=== PATIENT | female | born 1980 | race Caucasian/White ===

== ENCOUNTER 2018-12-05 18:39 | Emergency (ER) | payer OTHER ==
[~2018-12-05] VITALS: Ht 154.9 cm; Wt 90.7 kg
[~2018-12-05 18:39] MED LIST: ATARAX10 MG PO; CLARINEX2.5 MG/5 M; PROVENTIL0.5 ML/2.5
== END 2018-12-05 20:48 | disposition home or self-care (01) ==
LOC: ER 18:39
DX: B34.9 Viral infection, unspecified (principal)